=== PATIENT | female | born 1980 | race Caucasian/White ===

== ENCOUNTER 2019-09-05 00:32 | Inpatient (IN) | payer OTHER ==
[~2019-09-05] VITALS: Ht 162.6 cm; Wt 55.3 kg
[2019-09-05] VITALS (9 sets, daily range): BP systolic 96–114; BP diastolic 51–69
--- NOTE | ~2019-09-05 | EMS ---
[address] [address] EMS Patient Care Report Name: NICOLE BECKWITH Room #: 464-P ADM IN M.R.#: [id number] Admission: 09/05/19 Attend Phys: Sam Mckeon Discharge: Date of : 80 Report #: [id number] THIS REPORT FOR: //name// Report Transmitted: 09/05/2019 06:49 EMS Care Summary [facility] MED-ACT Incident [id number] @ 09/05/2019 00:02 Incident Location [address] [place] [address] Patient NICOLE BECKWITH Female, 39 Years 1980 Patient Address [address] [place] [address] Patient History Crohn's Disease, Patient Allergies No known allergies, Patient Medications None Reported, Chief Complaint brief "tightness" in chest Disposition Transported No Lights/[place] Dis[place] Reason Unconscious/Fainting Transported To [facility] Narrative Pt says that she woke up with a "sharp" pain in the center of her chest that felt like "something needed to get out". This lasted for less than a minute. Her says that she stood up and had a syncopal episode. He says that she looked like she was shaking a little bit but was able to talk about [address] [address] EMS Patient Care Report Name: NICOLE BECKWITH Room #: 464-P [facility] IN ..#: [id number] Admission: 09/05/19 Attend Phys: Sam Mckeon Discharge: Date of : 80 Report #: [id number] seconds later. She was reportedly incontinent of urine. No previous seizure hx. Pt was feeling fine before going to bed two hours ago. She has no previous cardiac or respiratory history. She recently traveled to [place] and came back a few days ago. She is not aware of being around anyone that has been sick. Denies any recent cough, chills, body aches, or fever. She says that the chest discomfort is gone now but she feels dizzy, weak, nauseated, and short of breath. Pt was with Milan HARRELL on the front porch upon EMS arrival. Pt secured to cot in sitting position. EKG. 12L during transport. Very short transport time. ER contacted enroute. r/r no further orders. Released with report in ER. Initial Vitals @PTAP: 89,BP: 109/69,Glucose: 128,SpO2: 99, @00:26P: 75,R: 24,SpO2: 100, @00:17P: 75,R: 20,GCS: 15,SpO2: 97, @00:17P: 78,R: 20,BP: 106/62,GCS: 15,SpO2: 98,Revised Trauma: 12, Assessments @00:15MENTAL:No Abnormalities,SKIN:Pale,HEENT:Head/Face: No Abnormalities,Eyes: No Abnormalities,Neck/Airway: No Abnormalities,LUNG SOUNDS:General: Nausea,Left Upper: No Abnormalities,Right Upper: No Abnormalities,Left Lower: No Abnormalities,Right Lower: No Abnormalities,ABDOMEN:General: Nausea,Left Upper: No Abnormalities,Right Upper: No Abnormalities,Left Lower: No Abnormalities,Right Lower: No Abnormalities,PELVIS//GI:Incontinence,EXTREMITIES:Capillary Refill: Left Upper: < 2 Sec,Left Arm: No Abnormalities,Right Arm: No Abnormalities,Left Leg: No Abnormalities,Right Leg: No Abnormalities,PULSE:Radial: 2+ Normal,NEURO:No Abnormalities, Impression Syncope / Fainting Procedures @00:2612-Lead ECGResponse: UnchangedSucceeded@00:15ALS AssessmentResponse: UnchangedSucceeded Timeline DIET SUPERVISOR,BP: 109/69 M,PULSE: 89,RR: R,SPO2: 99 Ox,ETCO2: ,B,PAIN: ,GCS: , 00:00,Call Received 00:00,Psap Call 00:02,Dispatched 00:03,En Route 00:11,On Scene 00:12,At Patient 00:15,ALS Assessment,Response: UnchangedSucceeded, [facility] [address] [place] [address] EMS Patient Care Report Name: NICOLE BECKWITH Room #: 464-P ADM IN M.R.#: [id number] Admission: 09/05/19 Attend Phys: Sam Mckeon Discharge: Date of : 80 Report #: [id number] 00:17,BP: / M,PULSE: 75,RR: 20 R,SPO2: 97 Ox,ETCO2: ,BG: ,PAIN: ,GCS: 15, 00:17,BP: 106/62 M,PULSE: 78,RR: 20 R,SPO2: 98 Ox,ETCO2: ,BG: ,PAIN: ,GCS: 15, 00:20,Depart Scene 00:24,At Destination 00:26,12-Lead ECG,Response: UnchangedSucceeded, 00:26,BP: / M,PULSE: 75,RR: 24 R,SPO2: 100 Ox,ETCO2: ,BG: ,PAIN: ,GCS: , 00:40,Call Closed Disclaimer v1.1 Copyright 2020 [employer] This EMS Care Summary contains data elements from the applicable legal record (which may be displayed differently). It is designed to provide pertinent information for the following purposes: continuity of care, clinical quality, and state data reporting. The complete legal record is available to ED staff and administrators of the receiving hospital in [employer] Patient Tracker. All data is provided "as is."
[2019-09-05 01:18] LABS: HEMATOCRIT 38.4 % (37.0-47.0); MCH 24.9 pg (26.0-34.0); MCHC 31.3 g/dL (28.0-37.0); MCV 79.6 fL (80.0-100.0); PLATELET COUNT 301 thou/uL (150-400); RBC 4.82 mil/uL (4.20-5.00); RDW 15.8 % (10.5-14.5); WBC 9.6 thou/uL (4.0-11.0)
[2019-09-05 01:29] LABS: ANION GAP 13 mmol/L (7-16); BUN 29 mg/dL (7-18); CALCIUM 9.2 mg/dL (8.5-10.1); CHLORIDE 101 mmol/L (98-107); CO2 24 mmol/L (21-32); GLUCOSE 150 mg/dL (74-106); SODIUM 138 mmol/L (136-145); TROPONIN-I <0.06 ng/mL (<0.06)
[2019-09-05 01:31] LABS: POTASSIUM 2.6 mmol/L (3.5-5.1)
[2019-09-05 02:13] LABS: ABSOLUTE NEUTROPHILS 1.3 thou/uL (1.4-8.2)
[2019-09-05 03:08] LABS: ALBUMIN 3.9 g/dL (3.4-5.0); SGOT 34 U/L (15-37); SGPT 38 U/L (30-65); TOTAL BILIRUBIN 0.4 mg/dL (0.2-1.0); TOTAL PROTEIN 7.7 g/dL (6.4-8.2)
[2019-09-05 03:16] LABS: DIRECT BILIRUBIN < 0.1 mg/dL (<0.1-0.2)
[2019-09-05 03:49] LABS: % SATURATION 5 % (20-39); IRON 25 ug/dL (50-170); TIBC 461 ug/dL (250-450)
[2019-09-05 04:06] LABS: AMP/METHAMP Negative (Negative); BARBITURATES Negative (Negative); BENZODIAZEPINES Negative (Negative); COCAINE Negative (Negative); METHADONE Negative (Negative); OPIATES Negative (Negative); PCP Negative (Negative)
--- NOTE | 2019-09-05 04:21 | NUR ---
5708 PT WAS TAKEN TO FLOOR BY ZAY, ZAY RETURNED TO ED WITH PATIENT, STATING THE ROOM WAS NOT CLEANED YET AND INPATIENT STAFF WILL CALL US WHEN IT IS READY
--- NOTE | 2019-09-05 04:22 | NUR ---
INPATIENT BED STILL NOT READY, APPLE CHECKER NOTIFIED
--- NOTE | 2019-09-05 06:14 | NUR ---
PT ARRIVED TO UNIT APPROX 0445, ADMISSION AND ASSESSMENT COMPLETED. PT REPORTS BECOMING DIZZY AND DIAPHORETIC BEFORE PASSING OUT ONCE AT HOME, HAVING MILD SUBSTERNAL PAIN, TINGLING IN EXTREMITIES, AND NAUSEA. NO CHEST PAIN AFTER ARRIVING IN ER, BUT HAD x2 EPISODES EMESIS; REPORTS IMPROVEMENT OF TINGLING SINCE HAVING POTASSIUM REPLACEMENT. IVF INFUSING. FALL PREC IN PLACE, EDUCATED TO CALL FOR HELP BEFORE GETTING UP. SR WITH HR IN 60'S ON TELE. NO OTHER CONCERNS, WILL CONTINUE TO MONITOR.
--- NOTE | 2019-09-05 09:35 | 2DMMODE ---
[facility] [place] [address] 2 D/M-MODE ECHOCARDIOGRAM Name: NICOLE BECKWITH Room #: 464-P ADM IN M.R.#: [id number] Admission: 09/05/19 Attend Phys: Sam Mckeon Discharge: Date of : 80 Report #: [id number] THIS REPORT FOR: cc: Earnestine Gary MD, Julie MD Lammoglia, Francisco J. MD ~ APPROVED REPORT Study performed: 09/05/2019 08:57:13 EXAM: Comprehensive 2D, Doppler, and color-flow Echocardiogram Patient Location: Bedside Room #: 464 Status: routine BSA: 1.59 HR: 87 bpm BP: 114/57 mmHg Rhythm: NSR Other Information Study Quality: Good Indications Syncope Chest Pain 2D Dimensions RVDd: 31.21 mm IVSd: 7.87 (7-11mm) LVOT Diam: 20.83 (18-24mm) LVDd: 42.78 mm PWd: 7.29 (7-11mm) Ascending Ao: 29.27 (22-36mm) LVDs: 25.22 (25-40mm) Aortic Root: 30.02 mm Volumes Left Atrial Volume (Systole) Single Plane 4CH: 33.01 mL Single Plane 2CH: 39.07 mL LA ESV Index: 25.00 mL/m2 Aortic Valve AoV Peak Neptali.: 1.83 m/s AO Peak Gr.: 13.36 mmHg LVOT Max P.86 mmHg LVOT Max V: 1.72 m/s MOLLY Vmax: 3.21 cm2 [facility] [address] [place] [address] 2 D/M-MODE ECHOCARDIOGRAM Name: TANGNICOLE Room #: 464-P [facility] IN .R.#: [id number] Admission: 09/05/19 Attend Phys: Sam Pittman Discharge: Date of : 80 Report #: [id number] Mitral Valve E/A Ratio: 1.6 MV Decel. Time: 135.55 ms MV E Max Neptali.: 1.23 m/s MV A Neptali.: 0.77 m/s MV PHT: 39.31 ms IVRT: 46.14 ms Pulmonary Valve PV Peak Neptali.: 1.34 m/s PV Peak Gr.: 7.13 mmHg Pulmonary Vein P Vein S: 0.96 m/s P Vein D: 0.75 m/s P Vein S/D Ratio: 1.28 Tricuspid Valve TR Peak Neptali.: 2.61 m/s RAP Estimate: 5.00 mmHg TR Peak Gr.: 27.22 mmHg PA Pressure: 32.00 mmHg Left Ventricle The left ventricle is normal size. There is normal LV segmental wall motion. There is normal left ventricular wall thickness. Left ventricular systolic function is normal. LVEF is 60-65%. The left ventricular diastolic function is normal. Right Ventricle The right ventricle is normal size. The right ventricular systolic function is normal. Atria The left atrium size is normal. The right atrium size is normal. Aortic Valve The aortic valve is normal in structure. No aortic regurgitation is present. There is no aortic valvular stenosis. Mitral Valve The mitral valve is normal in structure. Trace mitral regurgitation. No evidence of mitral valve stenosis. Tricuspid Valve The tricuspid valve is normal in structure. Mild tricuspid [facility] [address] [place] [address] 2 D/M-MODE ECHOCARDIOGRAM Name: TANGNICOLE Room #: 464-P ADM IN M.R.#: [id number] Admission: 09/05/19 Attend Phys: Sam Pittman Discharge: Date of : 80 Report #: [id number] regurgitation. Estimated PAP is 30-35mmHg. Pulmonic Valve The pulmonary valve is normal in structure. Mild pulmonic regurgitation. Great Vessels The aortic root is normal in size. The ascending aorta is normal in size. IVC is normal in size and collapses >50% with inspiration. Pericardium There is no pericardial effusion. <Conclusion> The left ventricle is normal size. LVEF is 60-65%. The aortic valve is normal in structure. The mitral valve is normal in structure. Trace mitral regurgitation. The tricuspid valve is normal in structure. Mild tricuspid regurgitation. Estimated PAP is 30-35mmHg. The pulmonary valve is normal in structure. Mild pulmonic regurgitation. There is no pericardial effusion. <ELECTRONICALLY SIGNED> By: Michleet Light MD 09/05/19932 2 2 Michelet Light MD /INF
[2019-09-05 14:11] LABS: HEMATOCRIT 32.6 % (37.0-47.0); HEMOGLOBIN 10.3 gm/dL (12.0-15.0); MCH 25.3 pg (26.0-34.0); MCHC 31.6 g/dL (28.0-37.0); RBC 4.08 mil/uL (4.20-5.00); RDW 15.9 % (10.5-14.5); WBC 5.7 thou/uL (4.0-11.0)
[2019-09-05 14:25] LABS: CALCIUM 8.8 mg/dL (8.5-10.1); CREATININE 0.7 mg/dL (0.6-1.0); MAGNESIUM 1.8 mg/dL (1.8-2.4); POTASSIUM 4.1 mmol/L (3.5-5.1)
[2019-09-06 00:05] VITALS: BP 112/72
[2019-09-06 00:07] LABS: GLYCOHEMOGLOBIN (HGB A1C) 5.4 % (4.8-5.6)
[2019-09-06 04:00] VITALS: BP 105/72
--- NOTE | 2019-09-06 07:27 | NUR ---
PROGRESS PT A/O X 4 UP AD YEN, DENIES SYNCOPE VSS TO HAVE MRI TODAY TO R/O ANY ABNORMALITIES PT HOPES TO DC HOME WITH A HEART MONITOR PER .
[2019-09-06 07:34] LABS: HEMATOCRIT 31.6 % (37.0-47.0); HEMOGLOBIN 10.1 gm/dL (12.0-15.0); MCH 25.8 pg (26.0-34.0); MCHC 32.1 g/dL (28.0-37.0); MCV 80.3 fL (80.0-100.0); RBC 3.93 mil/uL (4.20-5.00); RDW 16.5 % (10.5-14.5); WBC 4.2 thou/uL (4.0-11.0)
[2019-09-06 07:38] LABS: CALCIUM 8.6 mg/dL (8.5-10.1); CREATININE 0.8 mg/dL (0.6-1.0); MAGNESIUM 1.8 mg/dL (1.8-2.4); POTASSIUM 3.8 mmol/L (3.5-5.1)
--- NOTE | 2019-09-06 07:58 | EKG ---
[facility] [place] [address] ELECTROCARDIOGRAM REPORT Name: NICOLE BECKWITH Room #: 464-P ADM IN M.R.#: [id number] Admission: 09/05/19 Attend Phys: Aram Caputo MD Discharge: Date of : 80 Report #: [id number] THIS REPORT FOR: cc: Earnestine Gary MD, Julie MD Lundgren,Gume Rowe MD [facility] ~ THIS REPORT FOR: //name// [facility] ED Test Date: 2019-09-05 Test Time: 00:51:32 Pat Name: NICOLE BECKWITH Department: Room: 464 Gender: F Casting Director: RADHA : 1980 Requested By: Kirit Marquis Order Number: [id number] MD: Gume Richardson Measurements Intervals Essie Rate: 66 P: 57 AK: 141 QRS: 65 QRSD: 100 T: 55 QT: 424 QTc: 445 Interpretive Statements Sinus rhythm Normal tracing No previous ECG available for comparison Electronically Signed On 09-06-2019 7:56:27 CDT by Gume Richardson [email or web address] <ELECTRONICALLY SIGNED> By: Gume Richardson MD, [facility] 09/06/19 0756 0051 0051 Gume Richardson MD, [facility] /EPI
--- NOTE | 2019-09-06 07:59 | EKG ---
[facility] [place] [address] ELECTROCARDIOGRAM REPORT Name: NICOLE BECKWITH Room #: 464-P ADM IN M.R.#: [id number] Admission: 09/05/19 Attend Phys: Aram Caputo MD Discharge: Date of : 80 Report #: [id number] THIS REPORT FOR: cc: Earnestine Gary MD, Julie MD Lundgren,Gume Rowe MD [facility] ~ THIS REPORT FOR: //name// [facility] Test Date: 2019-09-05 Test Time: 08:29:42 Pat Name: NICOLE BECKWITH Department: Room: 464 Gender: F Manager Power: Paige TORRES : 1980 Requested By: Sonal Vizcaino Order Number: [id number] MD: Gume Richardson Measurements Intervals [place] Rate: 79 P: 55 MN: 138 QRS: 71 QRSD: 88 T: 55 QT: 375 QTc: 430 Interpretive Statements Sinus rhythm Normal tracing No previous ECG available for comparison Electronically Signed On 09-06-2019 7:57:04 CDT by Gume Richardson [email or web address] <ELECTRONICALLY SIGNED> By: Gume Richardson MD, [facility] 09/06/19 0757 0829 0829 Gume Richardson MD, [facility] /EPI
[2019-09-06 09:00] VITALS: BP 109/68
[2019-09-06 09:18] LABS: CHOLESTEROL 124 mg/dL (<200); HDL CHOLESTEROL 53 mg/dL (>40); LDL CHOLESTEROL 60 mg/dL (<100); TC:HDL 2.3 Ratio (Not establshd); TRIGLYCERIDE 56 mg/dL (<150); VLDL 11 mg/dL (<40)
[2019-09-06 16:51] VITALS: BP 109/68
--- NOTE | 2019-09-06 18:31 | NUR ---
PT A&OX4, VSS, DENIES PAIN, DENIES N/V/D. PATIENT DISCHARGED HOME. PATIENT HAS ALL BELONGINGS. PATIENT HAS EVENT MONITOR WITH HER AND AWARE TO FOLLOW UP WITH PCP AND MEDICAL RECORDS CLERK. NO PRESCRIPTIONS SENT. NO SIGNS OF DISTRESS.
--- NOTE | 2019-09-10 18:41 | EEG ---
[facility] [place] [address] ELECTROENCEPHALOGRAM Name: NICOLE BECKWITH Room #: 464-P [facility] IN M.R.#: [id number] Admission: 09/05/19 Attend Phys: Aram Caputo MD Discharge: 09/06/19 Date of : 80 Report #: [id number] THIS REPORT FOR: //name// CC: Aram Gary DATE OF SERVICE: 09/06/2019 This patient is being evaluated for an episode of syncope. EEG was done to evaluate for the possibility of seizure. EEG was done by placing the electrode by standard 10-20 system of electrode placement. Both referential and sequential montages were used for recording. Background activity in this patient's EEG is about 10 Hz and 30 microvolt. This patient became drowsy and that was associated with bilateral slowing and vertex sharp waves. Photic stimulation is unremarkable. Throughout the record, no active epileptiform activity was noticed. IMPRESSION: This patient's EEG is within normal limits. Thank you very much for this referral. <ELECTRONICALLY SIGNED> By: Bart Loza MD 09/10/19 1841 1856 190 Bart Loza MD /nt
--- NOTE | 2019-09-10 18:41 | HC ---
[facility] [place] [address] CONSULTATION Name: NICOLE BECKWITH Room #: 464-P [facility] IN M.R.#: [id number] Admission: 09/05/19 Attend Phys: Aram Caputo MD Discharge: 09/06/19 Date of : 80 Report #: [id number] THIS REPORT FOR: cc: Earnestine Gary MD, Julie MD Khosla, Parveen K. MD ~ CC: Sam Gary DATE OF SERVICE: 09/05/2019 HISTORY OF PRESENT ILLNESS: This patient was seen yesterday, but the note is being dictated today. She was seen to evaluate the patient for any neurological etiology for the patient's episode of syncope. She indicated that she felt dizzy and she passed out. She may have an episode of slight jerking. The whole episode lasted only for a few seconds. She never had this kind of episode before. She has the cardiology workup and she is going to get some cardiology workup as an outpatient. When she came in, her potassium was only 2.6. REVIEW OF SYSTEMS: Positive for some anxiety, but is negative for any stroke. She does not have these kind of episodes on a regular basis. She is being worked up by Cardiology. She does not have any significant headache. The other notes were reviewed. Review of system is positive for above-described symptoms. PAST MEDICAL HISTORY: Negative for this kind of syncope. FAMILY HISTORY: Unremarkable. SOCIAL HISTORY: She drinks alcohol occasionally. PHYSICAL EXAMINATION: Indicates she is alert, responsive, able to follow simple and complex command. Her cranial nerve examination appears unremarkable. Her blood pressure is 105/72, respiration is 16, pulse is 63, temperature is 98. LABORATORY DATA: White count is 5.7. She did have a CT scan of the head and a carotid Doppler, which appear unremarkable. IMPRESSION: This patient's episode was most likely secondary to cardiac etiology, which can be vasovagal spell or any other etiology from the cardiac perspective. I do not think there is any neurological etiology, but I did do an MRI and EEG to exclude that. If that is negative, further management will be deferred to biomechanical engineer and Cardiology because most likely the cause of her symptoms is going to be from the cardiology or systemic perspective. She needs [address] [address] CONSULTATION Name: NICOLE BECKWITH Room #: 464-P [facility] IN M.R.#: [id number] Admission: 09/05/19 Attend Phys: Aram Caputo MD Discharge: 09/06/19 Date of : 80 Report #: [id number] to take precautions, which we will discuss with her, but main management is going to be by the Cardiology and the biomechanical engineer. <ELECTRONICALLY SIGNED> By: Bart Loza MD 09/10/19 1841 0543 5 Bart Loza MD /nt
== END 2019-09-06 18:02 | disposition home or self-care (01) | DRG 641 ==
LOC: ER 00:32 → EROBS 02:48 → 4W 02:48
PROVIDERS: Emergency Medicine; Nurse Practitioner Family; ADMIT Internal Medicine
DX: E87.6 Hypokalemia (principal); K50.90 Crohn's disease, unspecified, without complications; E83.42 Hypomagnesemia; F41.9 Anxiety disorder, unspecified; F32.9 Major depressive disorder, single episode, unspecified; R73.9 Hyperglycemia, unspecified; R07.89 Other chest pain; R11.2 Nausea with vomiting, unspecified; I08.1 Rheumatic disorders of both mitral and tricuspid valves; Z83.79 Family history of other diseases of the digestive system; Z82.49 Family history of ischemic heart disease and other diseases of the circulatory system
CPT/HCPCS: 10045